=== PATIENT | female | born 1955 | race Caucasian/White ===

== ENCOUNTER 2017-08-18 10:58 | Day surgery (SDC) | payer BC ==
[2017-08-15 09:00] VITALS: BMI 26.5
--- NOTE | 2017-08-18 15:46 | OP ---
DATE OF PROCEDURE: 08/18/2017 SURGEON: Cirilo David MD CAR TRIMMER SURGEON: None. PROCEDURES: 1. Esophagogastroduodenoscopy with biopsies. 2. Colonoscopy, diagnostic. INDICATION: 1. Dysphagia. 2. Rectovaginal fistula. 3. Known history of heavy colonic diverticulosis. 4. Questionable history of Crohn's disease, previously diagnosed, but no evidence of disease on last colonoscopy 3 years ago. MEDICATIONS: See anesthesia record. FINDINGS: After discussion of the risks, benefits and alternatives of the procedure, informed consen t was obtained and witnessed. Pre-endoscopic cardiopulmonary examination was satisfactory. Timeout was performed before sedation was achieved. Sedation was achieved with anesthesia assistance in the endoscopy unit. A Pentax adult upper endoscope was placed into the oropharynx and passed through the cricopharyngeus under direct visualization. The esophageal mucosa appeared normal through the proxi mal, mid and distal esophagus. At the GE junction, there was some mild inflammation and friability, but no apparent stricture or stenosis. The endoscope passed easily into the stomach. Forward and re troflexed views of the entire gastric mucosa were obtained. In the gastric antrum, there is localize d severe gastritis with significant edema, erythema, and friability as well as a couple of shallow ul cerations. Biopsies were obtained from the gastric antrum and body for histology and to rule out H. pylori infection. The endoscope was passed through the pylorus easily and into the first and second portions of the duodenum, which appeared normal. The upper endoscope was then completely withdrawn a nd the patient was repositioned. Digital rectal exam was performed, which was unremarkable. A Pentax adult colonoscope was inserted i nto the anus and passed forward to the cecum in the usual fashion. Advancement to the cecum was diff icult as the sigmoid colon was significantly tortuous and edematous in some areas; however, the endos cope was able to be advanced to the cecum successfully. The terminal ileum was not intubated. The a ppendiceal orifice and the ileocecal valve were visualized and appeared normal. The colonoscope was then slowly withdrawn in a gradual and circumferential manner with careful examination of the entire colonic mucosa. The quality of the prep was good. There were no polyps or mass lesions visualized. The mucosa of the cecum, ascending colon, transverse colon, and descending colon appeared normal. T here is diverticulosis throughout the colon. In the sigmoid colon, the diverticulosis was quite heav y. Also, in the sigmoid colon, there is patchy erythema and edema, which is heavier more distally. This is in an area of heavy diverticulosis. I was not able to visualize the fistula opening on this exam, but I presume that it is within this diseased segment. The rectosigmoid colon and rectum appea red normal on forward and retroflexed views. There were some small internal hemorrhoids. The colono scope was completely withdrawn and the patient allowed to recover. The patient tolerated the procedu re well. There were no immediate post-procedure complications. IMPRESSION: 1. Erosive gastritis in the antrum, with a few shallow ulcerations. Biopsied for histology and to r ule out Helicobacter pylori. 2. Mild distal esophagitis at the gastroesophageal junction, without esophageal stricture. 3. Patchy edema and erythema throughout the sigmoid colon from 15 to 40 cm, and an area of heavy div erticulosis. No fistula opening visualized. 4. Diverticulosis throughout the colon. 5. Otherwise, normal colonoscopy to the cecum. RECOMMENDATIONS: 1. Proceed with surgical planning with Dr. Cordoba. The patient will likely need sigmoid resection with repair of colovaginal fistula. 2. Start twice daily pantoprazole 40 mg. 3. Followup results of gastric biopsies. 4. Follow up in the GI clinic in about 1 month.
== END 2017-08-18 15:58 | disposition home or self-care (01) ==
LOC: SDC 10:58
PROVIDERS: ATTEND Internal Medicine
PROC: 0DJD8ZZ Inspection of Lower Intestinal Tract, Via Natural or Artificial Opening Endoscopic (ICD-10-PCS; principal; 2017-08-18)
PROC: 0DB78ZX Excision of Stomach, Pylorus, Via Natural or Artificial Opening Endoscopic, Diagnostic (ICD-10-PCS; principal; 2017-08-18)
DX: K62.89 Other specified diseases of anus and rectum (principal); R13.10 Dysphagia, unspecified; Q43.8 Other specified congenital malformations of intestine; K57.30 Diverticulosis of large intestine without perforation or abscess without bleeding; K64.8 Other hemorrhoids; K20.9 Esophagitis, unspecified; K29.60 Other gastritis without bleeding; N82.3 Fistula of vagina to large intestine; E11.9 Type 2 diabetes mellitus without complications; I42.9 Cardiomyopathy, unspecified; E78.5 Hyperlipidemia, unspecified; M26.603 Bilateral temporomandibular joint disorder, unspecified; G43.909 Migraine, unspecified, not intractable, without status migrainosus; F17.210 Nicotine dependence, cigarettes, uncomplicated; K58.1 Irritable bowel syndrome with constipation; Z79.01 Long term (current) use of anticoagulants; Z79.82 Long term (current) use of aspirin; Z79.899 Other long term (current) drug therapy; Z95.810 Presence of automatic (implantable) cardiac defibrillator; Z90.710 Acquired absence of both cervix and uterus; Z98.890 Other specified postprocedural states
CPT/HCPCS: 88305; 88312

== ENCOUNTER 2017-10-15 11:30 | Inpatient (IN) | payer BC ==
[2017-10-15 12:51] VITALS: BMI 28.3
[2017-10-21] MEDS ORDERED: Ketorolac Tromethamine 30 MG/ML VIAL ONE (06:09)
[2017-10-21] MEDS ORDERED: Fentanyl 100 MCG/2 ML VIAL ONE ×2 (06:43→07:25)
[2017-10-21] MEDS ORDERED: Dexamethasone 4 mg/ml Vial ONE (06:43)
[2017-10-21] MEDS ORDERED: Midazolam HCl 2 mg/2 ml Vial ONE (06:43)
[2017-10-21] MEDS ORDERED: cefOXitin 2 GM, Syringe 1 ML in Sterile Water 10 ML SLOW IVP SCH (06:45)
[2017-10-21] MEDS ORDERED: Bupivacaine/Epinephrine 0.25% 30 ML VIAL ONE (06:51)
[2017-10-21] MEDS ORDERED: Gabapentin 300 MG CAP ONE (06:58)
[2017-10-21] MEDS ORDERED: Lidocaine 1% w/Epinephrine 1:200K 30 ML VIAL ONE (08:17)
[2017-10-21] MEDS ORDERED: cefOXitin 2 GM VIAL ONE (08:49)
[2017-10-21] MEDS ORDERED: Rocuronium Bromide 50 MG/5 ML VIAL ONE (09:41)
[2017-10-21] MEDS ORDERED: Promethazine HCl 25 MG/ML VIAL IM PRN ×2 (10:47→12:29)
[2017-10-21] MEDS ORDERED: Ondansetron HCl/PF 4 MG/2 ML Vial IVP PRN ×2 (10:47→12:29)
[2017-10-21] MEDS ORDERED: Promethazine HCl 25 MG/ML VIAL SLOW IVP PRN (10:47)
[2017-10-21] MEDS ORDERED: Morphine 4 MG/ML Carpuject SLOW IVP PRN (12:29)
[2017-10-21] MEDS ORDERED: Famotidine 20 MG TAB PO SCH ×2 (12:29→13:00)
[2017-10-21] MEDS ORDERED: Ketorolac Tromethamine 30 MG/ML VIAL IVP SCH ×2 (12:29→13:00)
[2017-10-21] MEDS ORDERED: Insulin Regular 300 UNITS/3 ML VIAL SC PRN (12:29)
[2017-10-21] MEDS ORDERED: Famotidine/PF 20 mg/2ml Vial SLOW IVP SCH (12:29)
[2017-10-21] MEDS ORDERED: hydrALAZINE 20 MG/ML VIAL SLOW IVP PRN (12:29)
[2017-10-21] MEDS ORDERED: Morphine 4 MG/ML VIAL SLOW IVP PRN ×2 (12:53→12:54)
[2017-10-21] MEDS ORDERED: Bupivacaine HCl 0.5%/Epinephrine 1:200,000/PF 30 ml Vial ONE (13:05)
[2017-10-21] MEDS: Sodium Chloride 0.9% 1,000 ML IV SCH ×2 (13:44→20:31)
[2017-10-21] MEDS ORDERED: Glycopyrrolate 0.2 MG/ML 5 ML SYRINGE ONE (13:46)
[2017-10-21] MEDS ORDERED: PROPOFOL 200 MG/20 ML VIAL ONE (13:46)
[2017-10-21] MEDS ORDERED: Lidocaine 1% PF 5 ML VIAL ONE (13:46)
[2017-10-21] MEDS ORDERED: PHENYLEPHRINE-NS 100 MCG/ML 10 ML SYRINGE ONE (13:46)
[2017-10-21] MEDS: Acetaminophen 1,000 MG in Premix Bag 1 BAG IVPB SCH ×3 (13:53→23:36)
[2017-10-21] MEDS ORDERED: cefOXitin Sodium 1 GM in Sodium Chloride 0.9% 100 ML IVPB SCH (14:00)
[2017-10-21 14:39] LABS: CO2 Tension 37.1 mmHg (35.0-45.0); O2 Tension (PaO2) 290.3 mmHg (80.0-100.0); pH, Arterial 7.42 (7.35-7.45)
[2017-10-21 14:40] LABS: Actual Bicarbonate (HCO3a) 23.6 mEq/L (22-26); Analyzer IN Cardio OR; Base Excess (BEa) -0.5 mEq/L (0 (+/-) 2.5); Calcium, Ionized 1.1 mmol/L (1.12-1.30); Hematocrit-ABG 34.5 % (36.0-47.0); Hemoglobin (Hb) 11.6 g/dL (12.0-16.0); Puncture Site ALINE
[2017-10-21] MEDS: cefOXitin Sodium 1 GM, Syringe 0.5 ML in Sterile Water 10 ML SLOW IVP SCH (17:17)
[2017-10-21] MEDS: Ketorolac Tromethamine 30 MG/ML VIAL IVP SCH ×2 (17:17→23:36)
[2017-10-21] MEDS: Enoxaparin Sodium 40 MG/0.4 ML SYRINGE SC SCH (20:30)
[2017-10-21] MEDS: Famotidine 20 MG TAB PO SCH (20:33)
[2017-10-22] MEDS: cefOXitin Sodium 1 GM, Syringe 0.5 ML in Sterile Water 10 ML SLOW IVP SCH (01:40)
[2017-10-22] MEDS: Sodium Chloride 0.9% 1,000 ML IV SCH ×4 (05:13→21:20)
[2017-10-22] MEDS: Ketorolac Tromethamine 30 MG/ML VIAL IVP SCH ×4 (05:36→22:58)
[2017-10-22] MEDS: Acetaminophen 1,000 MG in Premix Bag 1 BAG IVPB SCH (05:37)
[2017-10-22 05:53] LABS: #Eosinphils 0.1 thou/uL (0.0-0.7); #Monocytes 0.4 thou/uL (0.11-0.59); %Basophils 0.4 % (0.0-1.0); %Eosinophils 1.7 % (0.0-10.0); %Lymphocytes 26.2 % (21.0-51.0); %Monocytes 4.6 % (0.0-10.0); %Neutrophils 67.1 % (42.0-75.0); Hemoglobin 11.8 g/dL (12.0-16.0); Mean Corpuscular HGB CONC 33.8 g/dL (32.0-36.0); Mean Corpuscular Hemoglobin 29.9 pg (27.0-31.0); Mean Corpuscular Volume 88.5 fl (81.0-99.0); Mean Platelet Volume 6.9 fL (7.4-10.4); Platelet Count 185 thou/uL (130-400); RBC Distribution Width 11.7 % (11.5-14.5); Red Blood Cell (RBC) Count 3.94 mill/uL (4.20-5.40); White Blood Cell (WBC) Count 7.4 thou/uL (4.8-10.8)
[2017-10-22 06:15] LABS: Anion Gap 8 mmol/L (10-20); BUN (Urea Nitrogen) 10 mg/dL (9.8-20.1); Calc. Creatinine Clearance 85 mL/min (70-130); Calcium 8.1 mg/dL (7.8-10.44); Carbon Dioxide 25 mmol/L (23-31); Chloride 110 mmol/L (98-107); Estimated GFR-MDRD 74; Glucose 104 mg/dL (80-115); Potassium 3.2 mmol/L (3.5-5.1); Sodium 140 mmol/L (136-145)
[2017-10-22] MEDS: Famotidine 20 MG TAB PO SCH ×2 (08:28→21:20)
[2017-10-22] MEDS ORDERED: Sodium Chloride 0.9% 1,000 ML IV SCH (08:45)
[2017-10-22] MEDS: Ramipril 5 MG CAP PO SCH (09:51)
[2017-10-22] MEDS: Carvedilol 25 MG TAB PO SCH ×2 (09:51→21:20)
[2017-10-22] MEDS ORDERED: Potassium Chloride 20 MEQ TAB PO SCH (14:45)
[2017-10-22] MEDS: Potassium Chloride 20 MEQ TAB PO SCH (18:17)
[2017-10-22] MEDS: Enoxaparin Sodium 40 MG/0.4 ML SYRINGE SC SCH (21:20)
[2017-10-23] MEDS: Ketorolac Tromethamine 30 MG/ML VIAL IVP SCH ×4 (05:56→23:49)
[2017-10-23 08:27] LABS: Anion Gap 11 mmol/L (10-20); BUN (Urea Nitrogen) 8 mg/dL (9.8-20.1); Calc. Creatinine Clearance 93 mL/min (70-130); Calcium 8.5 mg/dL (7.8-10.44); Carbon Dioxide 21 mmol/L (23-31); Chloride 111 mmol/L (98-107); Estimated GFR-MDRD 82; Glucose 77 mg/dL (80-115); Potassium 3.6 mmol/L (3.5-5.1); Sodium 139 mmol/L (136-145)
[2017-10-23] MEDS: Famotidine 20 MG TAB PO SCH ×2 (09:02→20:14)
[2017-10-23] MEDS: Carvedilol 25 MG TAB PO SCH ×2 (09:02→20:14)
[2017-10-23] MEDS: Potassium Chloride 20 MEQ TAB PO SCH ×2 (09:02→17:42)
[2017-10-23] MEDS: Ramipril 5 MG CAP PO SCH (09:03)
[2017-10-23] MEDS: Enoxaparin Sodium 40 MG/0.4 ML SYRINGE SC SCH (20:14)
[2017-10-24] MEDS: Ketorolac Tromethamine 30 MG/ML VIAL IVP SCH (05:37)
[2017-10-24 08:01] VITALS: BP 133/77; TEMP 98.3
[2017-10-24] MEDS: Famotidine 20 MG TAB PO SCH (09:02)
[2017-10-24] MEDS: Carvedilol 25 MG TAB PO SCH (09:02)
[2017-10-24] MEDS: Potassium Chloride 20 MEQ TAB PO SCH (09:02)
[2017-10-24] MEDS: Ramipril 5 MG CAP PO SCH (09:02)
--- NOTE | 2017-10-27 11:12 | OP ---
DATE OF OPERATION: 10/21/2017 PREOPERATIVE DIAGNOSIS: Colovaginal fistula secondary to diverticulitis. POSTOPERATIVE DIAGNOSIS: Colovaginal fistula secondary to diverticulitis. OPERATION PERFORMED: Laparoscopic sigmoid colectomy. SURGEON: Crispin Cordoba M.D. ANESTHESIA: General endotracheal with a TAP block, placed by Anesthesia. INDICATIONS: The patient is a 62-year-old white female. She has ongoing symptoms consistent with a colovaginal fistula. This is also seen on the CT scan. Colonoscopy reveals no evidence of a maligna ncy. She is taken to the operating room at this time for laparoscopic sigmoid colectomy. DESCRIPTION OF OPERATION: Informed consent was obtained. The patient was taken to the operating nataly m where general endotracheal anesthesia was obtained with the patient in supine position. Abdomen wa s prepped with ChloraPrep and draped in the sterile fashion. Potts catheter was placed. A 5-mm supr aumbilical incision was created through which a Veress needle was passed into the peritoneal cavity a nd pneumoperitoneum established using carbon dioxide up to a pressure of 15 mmHg. A 5-mm trocar port site was passed through this same incision. Laparoscopic camera was passed this port. Under direct vision, a 12-mm right lower quadrant port was placed. The colon and pelvis were assessed and a site was selected for a colon extraction port in the left lower quadrant. An 8-cm oblique incision was c reated and dissection was carried down to the abdominal wall. Muscle splitting was used to gain acce ss into the abdominal cavity. The Camron wound retractor was placed followed by the GelPort. The left colon was found to be without evidence of disease. It was recognized that she had diverticu lar disease throughout her colon, but there was no inflammation at all in the left colon. The area o f inflammatory change was in the mid and distal sigmoid colon and this was densely adherent to the va ginal cuff near the base of the bladder. I was able to palpate normal rectum beyond the area of the obvious fistulous induration. The left colon was thoroughly mobilized by incising the white line of Toldt up to the splenic flexure and mobilizing the mesentery on top of the fascia of Toldt. Dissection was then carried down to the area of the fistula along the left lateral aspect of the sigmoid colon. With considerable difficult y, I was able to dissect the colon off of the vaginal cuff and off the pelvis. This was done using a combination of blunt digital dissection and utilization of the LigaSure. Once it was fully mobilize d, attention was turned to the bladder. This was filled with 300 mL of blue stained saline. There w as no evidence of blue tension of the tissue and certainly no evidence of any leak. It was presumed therefore that the adhesions had all been to the vaginal cuff, consistent with her history of colovag inal fistula. The peritoneum on either side of the rectal mesentery was dissected down into the pelvis below the le michael of the sacral promontory. At this level, the upper rectum was entirely free of disease. A mesen teric window was dissected and the upper rectum was divided using a single fire of the blue load of t he [place] stapler. The mesentery was then dissected proximally using the LigaSure. When this was a dequately mobilized, a segment of left colon was found to easily reach down to the rectal stump. Thi s was marked with the LigaSure. The sigmoid colon was then exteriorized through the Camron wound ret ractor. Sterile towels were placed around the wound retractor. Instruments were segregated while the bowel w as to be opened. The segment that had been marked was incised and the caliber of the colon was inspe cted with EEA sizers. This was found to tolerate the 29-mm sizer and therefore I obtained the 29-mm stapler. The anvil of the stapler was passed through the colotomy several centimeters proximally whe re it was brought out antimesenteric. The enterotomy was then excluded with a final firing of the Ec helon stapler. The mesentery to this division line had already been taken down using the LigaSure de vice. The specimen was then passed off the field. The cautery, the suction and all instruments util ized were also passed off the field and gloves were changed at this juncture. The anvil post was cleansed with Betadine. A pursestring suture of 2-0 Prolene was placed around the base of the anvil and the proximal segment of the divided colon was dropped back down into the abdom inal cavity. From below, EEA sizers were passed without difficulty up to the rectal staple line. The EEA stapler was then passed up to the staple line and the spike was advanced anterior to the staple line. The tw o segments of bowel were mated and anastomosis was created by firing the stapler. The stapler was re moved and donuts were inspected and found to be intact. A leak test was performed using the proctosc ope while the anastomosis was under water and there was no evidence of an air leak. The proctoscope was removed. All irrigation within the abdomen was aspirated. All surgical sites were inspected and found to be hemostatic. The fascia at the 12-mm port site was closed with 0 Vicryl suture using a G Fiordaliza needle. All ports and instruments removed under direct vision. The Camron wound retractor was removed as well. The abdomen was thoroughly cleansed at this point and all laparoscopic instrumentation was removed fr om the field. Gowns and gloves were then changed in preparation for closure. Four new towels were t hen placed around the abdomen. The fascia was closed in two layers using #1 PDS suture. The wound w as irrigated between layers and after the upper layer was closed using about 2 liters of saline. The subcutaneous tissue was approximated with interrupted sutures of 3-0 Vicryl. Skin edges approximate d with 4-0 Monocryl and all skin incisions were closed with subcuticular sutures of Monocryl. Dermab ond was placed externally. There were no complications. The patient tolerated the procedure well. Efforts have been made to maintain her temperature at 36 degrees during the case. Blood loss was neg ligible. She was taken to recovery room in stable condition.
== END 2017-10-24 10:55 | disposition home or self-care (01) | DRG 330 ==
LOC: SURG A 10-21 05:54
PROVIDERS: ADMIT Specialist; ATTEND Specialist
PROC: 0DBN4ZZ Excision of Sigmoid Colon, Percutaneous Endoscopic Approach (ICD-10-PCS; principal; 2017-10-21)
DX: K57.30 Diverticulosis of large intestine without perforation or abscess without bleeding (principal); N82.3 Fistula of vagina to large intestine
CPT/HCPCS: 36415; 36416; 80048; 82805; 85025; 88307; A4216; J0131; J0670; J0694; J1100; J1650; J1885; J2001; J2250; J2704; J3010; Q9968

== ENCOUNTER 2017-10-15 12:13 | Outpatient (CLI) | payer BC ==
[2017-10-15 12:50] LABS: #Basophils 0.1 thou/uL (0.0-0.2); #Eosinphils 0.2 thou/uL (0.0-0.7); #Lymphocytes 2.9 thou/uL (1.20-3.40); #Monocytes 0.5 thou/uL (0.11-0.59); #Neutrophils 4.8 thou/uL (1.40-6.50); %Basophils 0.9 % (0.0-1.0); %Eosinophils 2.6 % (0.0-10.0); %Lymphocytes 34.2 % (21.0-51.0); %Monocytes 5.7 % (0.0-10.0); %Neutrophils 56.6 % (42.0-75.0); Hemoglobin 14.2 g/dL (12.0-16.0); Mean Corpuscular HGB CONC 33.8 g/dL (32.0-36.0); Mean Corpuscular Hemoglobin 29.9 pg (27.0-31.0); Mean Corpuscular Volume 88.4 fl (81.0-99.0); Mean Platelet Volume 7.1 fL (7.4-10.4); Platelet Count 277 thou/uL (130-400); Red Blood Cell (RBC) Count 4.75 mill/uL (4.20-5.40); White Blood Cell (WBC) Count 8.5 thou/uL (4.8-10.8)
[2017-10-15 12:58] LABS: Hemoglobin A1c 6.3 % (4.0-6.0)
[2017-10-15 13:13] LABS: Anion Gap 11 mmol/L (10-20); BUN (Urea Nitrogen) 18 mg/dL (9.8-20.1); Calc. Creatinine Clearance 0 mL/min (70-130); Calcium 9.7 mg/dL (7.8-10.44); Carbon Dioxide 32 mmol/L (23-31); Chloride 105 mmol/L (98-107); Estimated GFR-MDRD 57; Glucose 114 mg/dL (80-115); Sodium 144 mmol/L (136-145)
--- NOTE | 2017-10-15 16:41 | RAD ---
TWO VIEWS CHEST: 10/15/17 PROVIDED CLINICAL HISTORY: Preop. FINDINGS: No comparisons. The cardiac silhouette appears enlarged. Left subclavian cardiac pacing device is noted with lead tip s overlying the expected locations of RA, RV, and coronary sinus. Atherosclerosis involves the aortic arch. No focal consolidation, pleural fluid or pneumothorax apparent. IMPRESSION: Cardiomegaly without evidence for an acute cardiopulmonary process. POS: CET
== END 2017-10-15 12:14 | disposition home or self-care (01) ==
LOC: LABBT 12:13
PROVIDERS: ATTEND Specialist
DX: Z01.818 Encounter for other preprocedural examination (principal); N82.4 Other female intestinal-genital tract fistulae; K57.30 Diverticulosis of large intestine without perforation or abscess without bleeding; I51.7 Cardiomegaly
CPT/HCPCS: 71046; 80048; 83036; 85025; 93005; 93010

== ENCOUNTER 2018-03-30 15:48 | Inpatient (IN) | payer BC ==
[2018-03-30 16:39] LABS: #Basophils 0.1 thou/uL (0.0-0.2); #Eosinphils 0.2 thou/uL (0.0-0.7); #Monocytes 0.6 thou/uL (0.11-0.59); #Neutrophils 6.7 thou/uL (1.40-6.50); %Basophils 0.7 % (0.0-1.0); %Eosinophils 2.3 % (0.0-10.0); %Lymphocytes 28.3 % (21.0-51.0); %Monocytes 5.4 % (0.0-10.0); %Neutrophils 63.3 % (42.0-75.0); Hemoglobin 14.3 g/dL (12.0-16.0); Mean Corpuscular HGB CONC 33.6 g/dL (32.0-36.0); Mean Corpuscular Hemoglobin 29.7 pg (27.0-31.0); Mean Corpuscular Volume 88.5 fL (78.0-98.0); Mean Platelet Volume 7.7 fL (7.4-10.4); Platelet Count 284 thou/uL (130-400); RBC Distribution Width 11.5 % (11.5-14.5); Red Blood Cell (RBC) Count 4.81 mill/uL (4.20-5.40); White Blood Cell (WBC) Count 10.6 thou/uL (4.8-10.8)
[2018-03-30 16:45] LABS: PTT 37.6 SEC (22.9-36.1)
[2018-03-30 16:49] LABS: INR-International Normal Ratio 1.3; Prothrombin Time 15.9 SEC (12.0-14.7)
[2018-03-30 17:04] LABS: ALT (SGPT) 22 U/L (8-55); AST (SGOT) 22 U/L (5-34); Albumin 4.1 g/dL (3.4-4.8); Alkaline Phosphatase 76 U/L (40-150); Anion Gap 15 mmol/L (10-20); BUN (Urea Nitrogen) 19 mg/dL (9.8-20.1); Bilirubin, Total 0.4 mg/dL (0.2-1.2); Calc. Creatinine Clearance 0 mL/min (70-130); Calcium 9.4 mg/dL (7.8-10.44); Carbon Dioxide 24 mmol/L (23-31); Chloride 105 mmol/L (98-107); Estimated GFR-MDRD 49; Globulin 3.3 g/dL (2.4-3.5); Glucose 117 mg/dL (80-115); Potassium 3.9 mmol/L (3.5-5.1); Protein, Total 7.4 g/dL (6.0-8.3); Sodium 140 mmol/L (136-145)
[2018-03-30 17:11] VITALS: BMI 28.5
[2018-03-30] MEDS: Sodium Chloride 0.9% 1,000 ML IV SCH (17:51)
[2018-03-30] MEDS: Piperacillin/Tazobactam 3.375 GM in Sodium Chloride 0.9% 100 ML IVPB SCH ×2 (17:51→23:46)
--- NOTE | 2018-03-30 18:40 | HP ---
DATE OF ADMISSION: 03/30/2018 CHIEF COMPLAINT: Right-sided abdominal pain. HISTORY OF PRESENT ILLNESS: The patient is a 62-year-old white female. She is well known to myself from surgery in October of this year. She had a colovaginal fistula secondary to diverticulitis and sh kishor underwent a laparoscopic sigmoid colectomy at that time. She had a well-known history of dilated c ardiomyopathy. In spite of this, she did well with the surgery and had no postoperative problems. S he was smoking prior to her surgery and she quit before the surgery and has not started smoking again . She does continue to see Dr. Vicente as her dairy feed sales consultant. She is taking Eliquis in treatment of TIAs that she had about a year ago. She apparently still has some degree of vaginal spotting. There is no feculent or foul-smelling mate rial. She presented to see her primary care physician today with a complaint of right-sided abdominal pain. She initially noted this pain 5 days ago and then the pain seemed to subside and then become worse over the weekend (today is Friday). She has had some nausea, but no vomiting. She had a CT scan obt ained today, which revealed findings consistent with an enlarged retrocecal appendix with periappendi ceal stranding. There is also noted to be some inflammatory change near her vaginal cuff. I do not have the official radiology reading as I am dictating this, but this is my impression. She denies fe anh. PAST MEDICAL HISTORY: 1. Crohn's disease. 2. Diverticulitis. 3. Dilated cardiomyopathy. 4. History of colovaginal fistula. PAST SURGICAL HISTORY: 1. Hysterectomy. 2. Defibrillator implant, about 10 years ago. 3. Laparoscopic sigmoid colectomy in October of this year. MEDICATIONS: Furosemide, Eliquis, potassium, carvedilol, ramipril, Pentasa and pantoprazole. ALLERGIES: No known drug allergies. PERSONAL/SOCIAL HISTORY: She is and her is present with her. 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 REVIEW OF SYSTEMS: Otherwise, unremarkable. FAMILY HISTORY: Noncontributory. PHYSICAL EXAMINATION: VITAL SIGNS: She is afebrile with a temperature of 95.4, pulse is 93, blood pressure 129/62. GENERAL: She is well-developed, well-nourished, pleasant white female, in no acute distress. She is alert and oriented x3. Her weight is 167 pounds today, which is stable from 3 months ago. HEENT: Unremarkable. NECK: Supple. LUNGS: Clear to auscultation. CARDIAC: Regular rate and rhythm without murmur. ABDOMEN: Soft, nontender within the center abdomen. She has focal tenderness in the right mid later al abdomen. EXTREMITIES: Unremarkable. LABORATORY AND X-RAY FINDINGS: Labs have been ordered and are pending currently. Echocardiogram don e 03/2017 revealed a 15%-20% ejection fraction. She saw her dairy feed sales consultant last week who gave her no n ew medications or changes in her care. ASSESSMENT AND PLAN: Patient with apparent appendicitis based upon her examination and CT scan. I lamont mccarty recommend laparoscopic appendectomy. I have discussed this in detail with the patient as well a s potential risks. Unfortunately, after she had her CT scan, she had a full meal. This was at about 1:00 in the afternoon. Additionally, she is still fully anticoagulated on Eliquis. Her last dose o f this was last night. She normally takes it twice a day. For these reasons, I would recommend admcristian whipple to the hospital and start her on IV fluids and IV antibiotics. I would plan on proceeding with a laparoscopic appendectomy tomorrow. She understands that there are increased risks relative to he r anticoagulation, but by the time of surgery is performed tomorrow that she will have been 36 hours without her medication and I would go to great efforts to ensure that there will be no bleeding. Add itionally, I will inspect the vaginal cuff area for any inflammatory change in that locale, although I do not anticipate any significant surgery in regards to that.
[2018-03-31] MEDS: Piperacillin/Tazobactam 3.375 GM in Sodium Chloride 0.9% 100 ML IVPB SCH ×4 (05:05→22:26)
[2018-03-31] MEDS: Sodium Chloride 0.9% 1,000 ML IV SCH ×3 (05:06→22:34)
[2018-03-31] MEDS: Carvedilol 6.25 MG TAB PO SCH (06:04)
[2018-03-31] MEDS: Furosemide 20 MG TAB PO SCH (08:24)
[2018-03-31] MEDS ORDERED: RAMIPRIL 1.25 MG CAPSULE PO SCH (09:00)
[2018-03-31] MEDS ORDERED: Bupivacaine/Epinephrine 0.25% 30 ML VIAL ONE (12:44)
[2018-03-31] MEDS ORDERED: Fentanyl 100 MCG/2 ML VIAL ONE (12:49)
[2018-03-31] MEDS ORDERED: Ondansetron HCl/PF 4 MG/2 ML Vial ONE (14:24)
[2018-03-31] MEDS ORDERED: Glycopyrrolate 0.2 MG/ML 5 ML SYRINGE ONE (14:24)
[2018-03-31] MEDS ORDERED: diphenhydrAMINE 50 MG/ML VIAL ONE (14:24)
[2018-03-31] MEDS ORDERED: Lidocaine 1% PF 5 ML VIAL ONE (14:24)
[2018-03-31] MEDS ORDERED: Succinylcholine Chloride 20 MG/ML 10 ml SYRINGE FS ONE (14:24)
[2018-03-31] MEDS ORDERED: PROPOFOL 200 MG/20 ML VIAL ONE (14:24)
[2018-03-31] MEDS ORDERED: Metoclopramide HCl 10 MG/2 ML VIAL ONE (14:24)
[2018-03-31] MEDS ORDERED: Promethazine HCl 25 MG/ML VIAL SLOW IVP PRN (14:46)
[2018-03-31] MEDS ORDERED: Promethazine HCl 25 MG/ML VIAL IM PRN (14:46)
[2018-03-31] MEDS ORDERED: HYDROmorphone 2 MG/ML VIAL SLOW IVP PRN (14:46)
[2018-03-31] MEDS ORDERED: Meperidine HCl/PF 25 MG/ML VIAL SLOW IVP PRN (14:46)
[2018-03-31] MEDS ORDERED: Furosemide 20 MG TAB PO SCH (23:30)
[2018-04-01] MEDS: Piperacillin/Tazobactam 3.375 GM in Sodium Chloride 0.9% 100 ML IVPB SCH ×2 (05:19→10:26)
[2018-04-01] MEDS: Furosemide 20 MG TAB PO SCH (08:25)
[2018-04-01] MEDS: Carvedilol 6.25 MG TAB PO SCH (08:26)
[2018-04-01] MEDS: Sodium Chloride 0.9% 1,000 ML IV SCH (08:27)
[2018-04-01 08:28] VITALS: BP 108/61
[2018-04-01 09:54] VITALS: TEMP 98.6
--- NOTE | 2018-04-02 14:27 | OP ---
DATE OF PROCEDURE: 03/31/2018 PREOPERATIVE DIAGNOSES: Acute appendicitis, concern regarding inflammatory change at her vaginal cuf f. POSTOPERATIVE DIAGNOSES: Acute appendicitis, concern regarding inflammatory change at her vaginal cu ff. OPERATIONS PERFORMED: Laparoscopic appendectomy, exploration of the pelvis with lysis of some adhesi ons without attempted clearance of all pelvic adhesions. SURGEON: Dr. Crispin Cordoba. ANESTHESIA: General endotracheal. INDICATIONS: Ms. Ga is a 62-year-old white female who is well known to myself. I had previousl y performed a laparoscopic sigmoid colectomy in treatment of a colovaginal fistula. All fecal draina ge from her vagina had ceased. She does, however, still have intermittent spotting from her vagina. She had presented today with a complaint of abdominal pain. CT scan revealed findings consistent wi th acute appendicitis, but also demonstrated inflammatory change at the level of the vaginal cuff wit h concern for persistent colovaginal fistula. The patient was taken to the operating room at this [facility] for laparoscopic appendectomy with intent to inspect the area of the vaginal closure. DESCRIPTION OF OPERATION: Informed consent was obtained. The patient was taken to the operating nataly where general endotracheal anesthesia was obtained with the patient in supine position. Abdomen wa s prepped with ChloraPrep and draped in sterile fashion. Local anesthetic was infiltrated using 0.25 % Marcaine with epinephrine. A 5 mm infraumbilical incision was created through which a Veress needl e was passed into the peritoneal cavity and pneumoperitoneum established using carbon dioxide up to a pressure of 15 mmHg. A 5 mm trocar port was passed through this same incision. Laparoscopic camera was passed through this port. Under direct vision, 2 additional ports were placed including a 5 mm left lower quadrant port and a 12 mm suprapubic port. Attention was turned initially to the right lower quadrant. I was able to identify the cecum and the base of the appendix which was entirely normal. The appendix is centered along the lateral aspect o f the cecum and distal appendix was clearly inflamed and indurated consistent with acute appendicitis . I mobilized the appendix away from the cecum. The mesoappendix was taken down using electrocauter y and the base of the appendix was skeletonized. As I was mobilizing this, although the base appeare d to be without inflammatory change, there appeared to be almost diverticulum sticking out from the b ase of the appendix and as it was mobilizing some feculent material was expressed through this. I di d not feel that I had an adequate rim of normal tissue to be able to use the Endoloops and I therefor e obtained an [place] stapler. This was fired across the base of the appendix to include a cuff of c ecum. The divided appendix was placed within a specimen retrieval sac. The feculent material had be en expressed and was also placed within the same sac and the specimen was removed from the suprapubic port. The fascia was closed with 0 Vicryl suture using a GraNee needle. The staple line was inspec lázaro and was noted to be intact. The right lower quadrant was irrigated and all irrigant was aspirate d. Attention was then turned to the pelvis. There were fairly dense adhesions to the pelvis involving a couple of loops of small bowel. I began to mobilize these adhesions as some of them appeared to be fairly filmy. After a period of time; however, it became clear, there were adhesions that were fairl y dense and down into the pelvis and potentially at the level of the vaginal cuff. This would requir e a significant dissection that would potentially place bowel at risk for perforation. I therefore d ecided after a period of time not to proceed further with dissection within the pelvis as she is not having severe complaints regarding any drainage. I decided that if this required further inspection, it would require a dedicated operation for this purpose as well as a full bowel prep. This area was fully irrigated and all irrigant was aspirated. There had not been evidence of any bow el perforation. All ports and instruments were removed under direct vision. Pneumoperitoneum was carefully evacuated . Quarter percent Marcaine with epinephrine was infiltrated at each port site and skin edges approxi mated with 4-0 Monocryl subcuticular suture. Dermabond was placed externally. There were no complic ations. The patient tolerated the procedure well and was taken to recovery room in stable condition.
== END 2018-04-01 11:52 | disposition home or self-care (01) | DRG 342 ==
LOC: SURG A 15:48
PROVIDERS: ADMIT Specialist; ATTEND Specialist
PROC: 0DTJ4ZZ Resection of Appendix, Percutaneous Endoscopic Approach (ICD-10-PCS; principal; 2018-03-31)
DX: K37 Unspecified appendicitis (principal); K57.92 Diverticulitis of intestine, part unspecified, without perforation or abscess without bleeding; I42.0 Dilated cardiomyopathy; F17.210 Nicotine dependence, cigarettes, uncomplicated
CPT/HCPCS: 36415; 80053; 85025; 85610; 85730; 88304; 88305; 88341; 88342; A4216; J1200; J2001; J2405; J2543; J2704; J2765; J3010; J7050